=== PATIENT | female | born 2000 | race Two or more races ===

== ENCOUNTER 2022-03-09 11:53 | Observation (INO) | payer MEDICAID ==
[~2022-03-09] VITALS: Ht 157.5 cm; Wt 77.1 kg
[2022-03-09] MEDS ORDERED: LACTATED RINGER'S 1,000 ML IV SCH (12:45)
[2022-03-09 13:25] LABS: Hemoglobin 8.4 g/dL (12.2-16.2); Mean Corpuscular Volume 70.8 fL (80.0-100.0)
[2022-03-09 13:27] LABS: Hematocrit 27.5 % (36.0-46.0); Mean Corpuscular Hemoglobin 21.5 pg (28.0-32.0); Mean Corpuscular Hgb Conc. 30.4 g/dL (32.0-36.0); Red Blood Cells 3.88 10^6/uL (4.0-5.20); White Blood Cell 8.2 10^3/uL (4.4-10.8)
[2022-03-09 13:41] LABS: INR 0.95 (0.9-1.15); Partial Thromboplastin Time 29.9 sec (23.6-33.0)
[2022-03-09 13:44] LABS: Potassium 4.2 mmol/L (3.5-5.1)
[2022-03-09 13:46] LABS: Red Cell Distribution Width 21.9 % (11.8-14.3)
[2022-03-09 13:47] LABS: Basophils % (manual) 0 (0.0-2.0); Blast Cells 0; Eosinophils % (manual) 0 (0-7); Metamyelocytes % 0; Myelocytes % 0; Promyelocytes % 0; Reactive Lymphocytes 0
[2022-03-09 13:49] LABS: Albumin 2.8 g/dL (3.4-5.0); BUN/Creatinine Ratio 6.8; Bilirubin, Total 0.3 mg/dL (0.2-1.0); Calcium 8.6 mg/dL (8.5-10.1); Total Protein 7.1 g/dL (6.4-8.2)
[2022-03-09] MEDS ORDERED: LACTATED RINGER'S 1,000 ML IV ONE (14:15)
[2022-03-09 14:40] LABS: Band Neutrophils % (manual) 5; Lymphocytes % (manual) 18 (10.0-50.0); Monocytes % (manual) 15 (0-12)
[2022-03-09 15:14] LABS: Urine Bacteria NONE SEEN /hpf (None Seen); Urine Blood Negative /uL (Negative); Urine Specific Gravity 1.007 (1.001-1.035); Urine WBC 32 /hpf (0 - 5)
[2022-03-09 15:21] LABS: Alcohol, Urine < 3.0 mg/dL (0-10); Amphetamine Screen, Urine NEGATIVE (NEGATIVE); Barbiturate Scree,Urine NEGATIVE (NEGATIVE); Benzodiazephine Screen, Urine NEGATIVE (NEGATIVE); Cannabinoid Screen, Urine NEGATIVE (NEGATIVE); Cocaine Screen, Urine NEGATIVE (NEGATIVE); Opiate Scree,Urine NEGATIVE (NEGATIVE); Phencyclidine Screen, Urine NEGATIVE (NEGATIVE)
[2022-03-10 08:06] LABS: RPR Non Reactive (Non Reactive); Rubella Antibodies, IgG 5.65 index (Immune >0.99)
== END 2022-03-09 15:55 | disposition home or self-care (01) ==
LOC: LDRP 11:53
PROVIDERS: ADMIT Obstetrics & Gynecology; ATTEND Obstetrics & Gynecology
DX: O21.2 Late vomiting of pregnancy (principal); Z20.822 Contact with and (suspected) exposure to COVID-19; O26.893 Other specified pregnancy related conditions, third trimester; R05.9 Cough, unspecified; R50.9 Fever, unspecified; R53.1 Weakness; Z3A.34 34 weeks gestation of pregnancy; Z79.899 Other long term (current) drug therapy
CPT/HCPCS: 36415; 59025; 76805; 80053; 80307; 81001; 81002; 85007; 85027; 85610; 85730; 86592; 86703; 86762; 86850; 86900; 86901; 87340; 87426; 94760; 96360; 96361; G0378

== ENCOUNTER 2022-04-25 18:45 | Observation (INO) | payer OTHER ==
[~2022-04-25] VITALS: Ht 154.9 cm; Wt 72.6 kg
[2022-04-25] MEDS ORDERED: LACTATED RINGER'S 1,000 ML IV ONE (20:45)
[2022-04-25 22:19] LABS: Basophils # (auto) 0 10 ^3/uL (0-0.2); Basophils % (auto) 0.3 % (0.0-2.0); Eosinophils # (auto) 0.1 10 ^3/uL (0-0.8); Monocytes # (auto) 0.9 10 ^3/uL (0-1.3)
[2022-04-25 22:21] LABS: Hematocrit 24.5 % (36.0-46.0); Hemoglobin 7.6 g/dL (12.2-16.2); Lymphocytes % (auto) 15.3 % (10.0-50.0); Mean Corpuscular Hemoglobin 20.8 pg (28.0-32.0); Mean Corpuscular Hgb Conc. 30.9 g/dL (32.0-36.0); Mean Corpuscular Volume 67.2 fL (80.0-100.0); Monocytes % (auto) 6.6 % (0.0-12.0); Neutrophils # (auto) 10.2 10 ^3/uL (1.6-8.6); Neutrophils % (auto) 76.8 % (37.0-80.0); Nucleated Red Blood Cells % 0.2 %; Red Blood Cells 3.64 10^6/uL (4.0-5.20); White Blood Cell 13.2 10^3/uL (4.4-10.8)
[2022-04-25 22:23] LABS: Red Cell Distribution Width 22.4 % (11.8-14.3)
[2022-04-25 22:38] LABS: Albumin 2.8 g/dL (3.4-5.0); BUN/Creatinine Ratio 13.1; Calcium 8.7 mg/dL (8.5-10.1); Potassium 4.2 mmol/L (3.5-5.1)
[2022-04-25 22:41] LABS: Bilirubin, Total 0.2 mg/dL (0.2-1.0); Total Protein 6.2 g/dL (6.4-8.2)
[2022-04-26] VITALS (8 sets, daily range): BP systolic 98–125; BP diastolic 58–75
[2022-04-26] MEDS ORDERED: SODIUM CHLORIDE 0.9% 1,000 ML IV SCH (02:30)
== END 2022-04-26 05:01 | disposition home or self-care (01) ==
LOC: LDRP 18:45
PROVIDERS: ADMIT Obstetrics & Gynecology; ATTEND Obstetrics & Gynecology
DX: O99.013 Anemia complicating pregnancy, third trimester (principal); D64.9 Anemia, unspecified; O48.0 Post-term pregnancy; Z3A.40 40 weeks gestation of pregnancy
CPT/HCPCS: 36415; 36430; 59025; 76818; 80053; 81002; 85025; 86850; 86900; 86901; 86920; 87081; 94760; 96360; 96361; G0378; J7030; P9016

== ENCOUNTER 2022-04-27 22:09 | Inpatient (IN) | payer OTHER ==
[~2022-04-27] VITALS: Ht 154.9 cm; Wt 72.6 kg
[2022-04-27] MEDS ORDERED: BUTORPHANOL TARTRATE 2 MG/1 ML VIAL IV PRN ×2 (23:30)
[2022-04-27] MEDS ORDERED: LIDOCAINE 2%HCL (LOCAL ANESTH.) INJ 10ml MDV IJ PRN (23:30)
[2022-04-27] MEDS ORDERED: PROMETHAZINE HCL 25 MG/ML 1ML IV PRN (23:30)
[2022-04-27] MEDS ORDERED: PROMETHAZINE HCL 25 MG/ML 1ML IM PRN (23:30)
[2022-04-27] MEDS ORDERED: WITCH HAZEL-GLYCERIN PAD TOP PRN (23:30)
[2022-04-27] MEDS ORDERED: DERMOPLAST 60ML BOTTLE TOP PRN (23:30)
[2022-04-27] MEDS ORDERED: PHISODERM TOP SOLN 240ML BTL TOP PRN (23:30)
[2022-04-27 23:57] LABS: Basophils # (auto) 0.1 10 ^3/uL (0-0.2); Eosinophils # (auto) 0.1 10 ^3/uL (0-0.8); Hematocrit 28.5 % (36.0-46.0); Lymphocytes # (auto) 1.5 10 ^3/uL (0.4-5.4); Monocytes # (auto) 0.9 10 ^3/uL (0-1.3); Neutrophils # (auto) 8.8 10 ^3/uL (1.6-8.6); Nucleated Red Blood Cells % 0.2 %
[2022-04-27 23:59] LABS: Basophils % (auto) 1.2 % (0.0-2.0); Eosinophils % (auto) 1.1 % (0.0-7.0); Hemoglobin 8.8 g/dL (12.2-16.2); Lymphocytes % (auto) 13.5 % (10.0-50.0); Mean Corpuscular Hemoglobin 21.4 pg (28.0-32.0); Mean Corpuscular Hgb Conc. 30.9 g/dL (32.0-36.0); Mean Corpuscular Volume 69.5 fL (80.0-100.0); Monocytes % (auto) 7.6 % (0.0-12.0); Neutrophils % (auto) 76.6 % (37.0-80.0); Red Blood Cells 4.11 10^6/uL (4.0-5.20); White Blood Cell 11.4 10^3/uL (4.4-10.8)
[2022-04-28 00:05] LABS: Red Cell Distribution Width 23.4 % (11.8-14.3)
[2022-04-28 00:12] LABS: INR 0.94 (0.9-1.15); Partial Thromboplastin Time 25.1 sec (23.6-33.0)
[2022-04-28 00:15] LABS: Albumin 3.1 g/dL (3.4-5.0); BUN/Creatinine Ratio 11.9; Calcium 8.4 mg/dL (8.5-10.1); Potassium 3.9 mmol/L (3.5-5.1)
[2022-04-28 00:18] LABS: Bilirubin, Total 0.3 mg/dL (0.2-1.0); Total Protein 6.9 g/dL (6.4-8.2)
[2022-04-28 00:26] LABS: Urine Bacteria FEW /hpf (None Seen); Urine Blood Negative /uL (Negative); Urine Specific Gravity 1.011 (1.001-1.035); Urine WBC 8 /hpf (0 - 5)
[2022-04-28 00:35] LABS: Alcohol, Urine < 3.0 mg/dL (0-10); Amphetamine Screen, Urine NEGATIVE (NEGATIVE); Barbiturate Scree,Urine NEGATIVE (NEGATIVE); Benzodiazephine Screen, Urine NEGATIVE (NEGATIVE); Cannabinoid Screen, Urine NEGATIVE (NEGATIVE); Cocaine Screen, Urine NEGATIVE (NEGATIVE); Opiate Scree,Urine NEGATIVE (NEGATIVE); Phencyclidine Screen, Urine NEGATIVE (NEGATIVE)
[2022-04-28] MEDS: miSOPROStol 50 MCG per PRE-CUT 1/2 TAB PO PRN ×4 (01:00→14:41)
[2022-04-28] MEDS: LACTATED RINGER'S 1,000 ML IV SCH ×4 (02:03→21:43)
[2022-04-28] MEDS ORDERED: LACT. RINGERS/OXYTOCIN 20UNITS 500 ML IV ONE ×4 (06:30→22:30)
[2022-04-28] MEDS ORDERED: fentaNYL CITRATE 100 MCG/2 ML VL EPI ONE (17:45)
[2022-04-28] MEDS ORDERED: NALOXONE HCL 0.4 MG/ML VIAL IV ONE (17:45)
[2022-04-28] MEDS ORDERED: LACTATED RINGER'S 1,000 ML IV ONE (17:45)
[2022-04-28] MEDS ORDERED: ROPIVACAINE HCL 200 ML EPI SCH (17:45)
[2022-04-28] MEDS ORDERED: LIDOCAINE HCL 2 %PF INJ 10ML AMP IJ ONE (17:45)
[2022-04-28] MEDS ORDERED: ePHEDrine SULFATE 50 MG/ML AMP IV ONE (17:45)
[2022-04-28] MEDS ORDERED: TERBUTALINE SULFATE 1 MG/ML 1ML VIAL SC PRN (22:00)
[2022-04-28] MEDS ORDERED: LACT. RINGERS/OXYTOCIN 20UNITS 1,000 ML IV SCH (22:00)
[2022-04-29 07:06] LABS: RPR Non Reactive (Non Reactive)
[2022-04-29] MEDS ORDERED: LIDOCAINE 2%HCL (LOCAL ANESTH.) INJ 10ml MDV IJ PRN (09:00)
[2022-04-29] MEDS ORDERED: ACETAMINOPHEN 325 MG TAB PO PRN (10:00)
[2022-04-29] MEDS ORDERED: ONDANSETRON ODT 4 MG TAB PO PRN (10:00)
[2022-04-29] MEDS ORDERED: IBUPROFEN 600 MG TAB PO PRN (10:00)
[2022-04-29] MEDS: IBUPROFEN 800 MG TAB PO SCH ×3 (11:57→22:30)
[2022-04-29 15:00] VITALS: BP 96/61
[2022-04-29 16:00] VITALS: BP 96/61
[2022-04-29 19:00] VITALS: BP 107/77
[2022-04-29] MEDS ORDERED: DOCUSATE SOD 100 MG CAP PO SCH (22:00)
[2022-04-29 23:00] VITALS: BP 107/77
[2022-04-29 23:26] LABS: Basophils # (auto) 0 10 ^3/uL (0-0.2); Basophils % (auto) 0.2 % (0.0-2.0); Eosinophils # (auto) 0 10 ^3/uL (0-0.8); Eosinophils % (auto) 0.2 % (0.0-7.0)
[2022-04-29 23:33] LABS: Neutrophils % (auto) 87.2 % (37.0-80.0); White Blood Cell 18.7 10^3/uL (4.4-10.8)
[2022-04-29 23:34] LABS: Hematocrit 19.3 % (36.0-46.0); Lymphocytes # (auto) 1.2 10 ^3/uL (0.4-5.4); Lymphocytes % (auto) 6.5 % (10.0-50.0); Monocytes # (auto) 1.1 10 ^3/uL (0-1.3); Monocytes % (auto) 5.9 % (0.0-12.0); Neutrophils # (auto) 16.3 10 ^3/uL (1.6-8.6); Red Blood Cells 2.77 10^6/uL (4.0-5.20)
[2022-04-29 23:35] LABS: Mean Corpuscular Hemoglobin 21.6 pg (28.0-32.0); Mean Corpuscular Volume 69.8 fL (80.0-100.0); Red Cell Distribution Width 23.3 % (11.8-14.3)
[2022-04-30] VITALS (8 sets, daily range): BP systolic 106–135; BP diastolic 66–89
[2022-04-30 10:29] LABS: Basophils # (auto) 0.1 10 ^3/uL (0-0.2); Eosinophils # (auto) 0.1 10 ^3/uL (0-0.8); Eosinophils % (auto) 0.6 % (0.0-7.0); Neutrophils # (auto) 13.8 10 ^3/uL (1.6-8.6)
[2022-04-30 10:31] LABS: Basophils % (auto) 0.6 % (0.0-2.0); Hematocrit 22.1 % (36.0-46.0); Lymphocytes # (auto) 0.7 10 ^3/uL (0.4-5.4); Lymphocytes % (auto) 4.4 % (10.0-50.0); Mean Corpuscular Hemoglobin 22.5 pg (28.0-32.0); Mean Corpuscular Hgb Conc. 31.6 g/dL (32.0-36.0); Mean Corpuscular Volume 71.3 fL (80.0-100.0); Monocytes # (auto) 0.8 10 ^3/uL (0-1.3); Monocytes % (auto) 5.4 % (0.0-12.0); White Blood Cell 15.5 10^3/uL (4.4-10.8)
[2022-04-30 10:36] LABS: Red Cell Distribution Width 23.5 % (11.8-14.3)
== END 2022-04-30 17:45 | disposition left against medical advice (07) | DRG 560 ==
LOC: LDRP 22:09
PROVIDERS: ADMIT Obstetrics & Gynecology; ATTEND Obstetrics & Gynecology
PROC: 3E0P7VZ Introduction of Hormone into Female Reproductive, Via Natural or Artificial Opening (ICD-10-PCS; 2022-04-27)
PROC: 3E0DXGC Introduction of Other Therapeutic Substance into Mouth and Pharynx, External Approach (ICD-10-PCS; 2022-04-27)
PROC: 10D07Z6 Extraction of Products of Conception, Vacuum, Via Natural or Artificial Opening (ICD-10-PCS; principal; 2022-04-29)
PROC: 3E0R3BZ Introduction of Anesthetic Agent into Spinal Canal, Percutaneous Approach (ICD-10-PCS; 2022-04-29)
PROC: 00HU33Z Insertion of Infusion Device into Spinal Canal, Percutaneous Approach (ICD-10-PCS; 2022-04-29)
PROC: 0KQM0ZZ Repair Perineum Muscle, Open Approach (ICD-10-PCS; 2022-04-29)
PROC: 30233N1 Transfusion of Nonautologous Red Blood Cells into Peripheral Vein, Percutaneous Approach (ICD-10-PCS; 2022-04-30)
DX: O48.0 Post-term pregnancy (principal); Z37.0 Single live birth; O41.03X0 Oligohydramnios, third trimester, not applicable or unspecified; O69.81X0 Labor and delivery complicated by cord around neck, without compression, not applicable or unspecified; Z20.822 Contact with and (suspected) exposure to COVID-19; Z3A.41 41 weeks gestation of pregnancy; Z88.1 Allergy status to other antibiotic agents; O70.1 Second degree perineal laceration during delivery; Z53.29 Procedure and treatment not carried out because of patient's decision for other reasons
CPT/HCPCS: 36415; 59025; 59409; 62282; 80053; 80307; 81001; 85025; 85610; 85730; 86592; 86850; 86900; 86901; 86920; 94760; 96360; 96361; 96372; 96374; G0378; J2001; J2590

== ENCOUNTER 2022-05-05 22:01 | Emergency (ER) | payer OTHER ==
[~2022-05-05] VITALS: Ht 157.5 cm; Wt 73.9 kg
[2022-05-05 23:00] LABS: Urine Bacteria FEW /hpf (None Seen); Urine Blood 3+ /uL (Negative); Urine Specific Gravity 1.004 (1.001-1.035); Urine WBC 144 /hpf (0 - 5)
[2022-05-05 23:00] LABS: Nucleated Red Blood Cells % 0.4 %
[2022-05-05 23:03] LABS: Basophils # (auto) 0.1 10 ^3/uL (0-0.2); Basophils % (auto) 0.5 % (0.0-2.0); Eosinophils # (auto) 0.2 10 ^3/uL (0-0.8); Eosinophils % (auto) 1.9 % (0.0-7.0); Hematocrit 25.5 % (36.0-46.0); Lymphocytes # (auto) 2.1 10 ^3/uL (0.4-5.4); Lymphocytes % (auto) 17.7 % (10.0-50.0); Mean Corpuscular Hgb Conc. 31.3 g/dL (32.0-36.0); Mean Corpuscular Volume 73.6 fL (80.0-100.0); Monocytes # (auto) 0.7 10 ^3/uL (0-1.3); Monocytes % (auto) 5.9 % (0.0-12.0); Neutrophils # (auto) 8.8 10 ^3/uL (1.6-8.6); Red Blood Cells 3.47 10^6/uL (4.0-5.20); White Blood Cell 11.9 10^3/uL (4.4-10.8)
[2022-05-05 23:17] LABS: Albumin 2.9 g/dL (3.4-5.0); Calcium 8.7 mg/dL (8.5-10.1); Magnesium 1.9 mg/dL (1.6-2.6); Potassium 3.9 mmol/L (3.5-5.1)
[2022-05-05 23:20] LABS: Bilirubin, Total 0.3 mg/dL (0.2-1.0); Total Protein 6.5 g/dL (6.4-8.2); Uric Acid 5.3 mg/dL (2.6-6.0)
[2022-05-05 23:57] LABS: Protein, Urine 28.5 mg/dL (0.0-11.9)
[2022-05-06] MEDS ORDERED: amLODIPine BESYLATE 5 MG TAB PO ONE (00:30)
[2022-05-06] MEDS ORDERED: hydrALAZINE HCL 20 MG/ML VL IV ONE (02:30)
[2022-05-06] MEDS ORDERED: AML5T PO (03:37)
[2022-05-06 04:00] VITALS: BP 132/90
== END 2022-05-06 04:10 | disposition home or self-care (01) ==
LOC: ER 22:01
DX: O14.95 Unspecified pre-eclampsia, complicating the puerperium (principal); R94.31 Abnormal electrocardiogram [ECG] [EKG]
CPT/HCPCS: 36415; 71045; 80053; 81001; 82570; 83615; 83735; 83880; 84156; 84550; 85025; 86850; 86900; 86901; 96374; 99284; J0360